=== PATIENT | female | born 2005 | race Caucasian/White ===

== ENCOUNTER 2025-01-31 08:52 | Outpatient (CLI) | payer MEDICAID ==
[2025-01-31] VITALS (21 sets, daily range): BP systolic 102–152; BP diastolic 58–113; PULSE 93–133
== END 2025-01-31 23:59 | disposition home or self-care (01) ==
LOC: CARD DIAG 08:52
PROVIDERS: ATTEND Nurse Practitioner Family
DX: R55 Syncope and collapse (principal); I95.1 Orthostatic hypotension
CPT/HCPCS: 93660

== ENCOUNTER 2025-04-29 15:39 | Emergency (ER) | payer MEDICAID ==
[~2025-04-29] VITALS: Ht 160 cm; Wt 150.4 kg
[2025-04-29 16:13] VITALS: TEMP 97.9
[2025-04-29 17:46] LABS: MEAN PLATELET VOLUME 8.6 FL (7.4-10.4); RED CELL DISTRIBUTION WIDTH 14.8 % (11.5-14.5)
[2025-04-29 17:55] LABS: CREATININE 0.93 MG/DL (0.40-0.90); TOTAL CARBON DIOXIDE 24.4 MMOL/L (24-32); eCRCL 78 ML/MIN; eGFR 75 ML/MIN
[2025-04-29] MEDS ORDERED: METR-159 PO (18:27)
--- NOTE | 2025-04-29 18:29 | Physician Documentation ---
History of Present Illness ~ Chief Complaint: Bloody Stools Stated Complaint: BLOOD IN STOOL Time Seen by MD: 17:16 Primary Medical Doctor: [facility] [place] Source: patient Mode of Arrival: EMS Exam Limitations: no limitations HPI 20-year-old female who is here due to blood on her stool along with "crampy" abdominal pain only when she has a BM x 5days. Symptoms are not worsening but she felt she should come to ER because not improving. She states her stool mushy. She reports about a year ago around this time she was diagnosed with colitis on a CT scan and treated with antibiotics. She never had a colonoscopy. She denies nausea or vomiting. She denies fever, chills Medication Reconciliation Allergies: Uncoded Allergies: MUSHROOMS (Allergy, Unknown, 03/20/25) PENICILLIN (Allergy, Unknown, 03/20/25) SHELLFISH (Allergy, Unknown, 03/20/25) Past Medical History Past Medical History: No Pertinent History Past Surgical History: no surgical history Alcohol Use: None Drug Use: none Review of Systems All Other Systems at this time: Reviewed and Negative Physical Exam Vital Signs: Temperature: 97.9, Source: Temporal, Heart Rate: 77, Respiratory Rate: 15, BP: 121/74, Pulse Oximetry: 98, Weight: 150.450 Oxygen Flow Rate: 0 Physical Exam GENERAL: Alert, no acute distress. HEENT: NCAT, EOMI, PERRL, normal oropharynx, moist oral mucosa. NECK: Supple, trachea midline. CARDIAC: Regular rate and rhythm, no murmurs, rubs, or gallops. Equal distal pulses. No lower extremity edema, cap refill less than 2 seconds. RESPIRATORY: Equal breath sounds, clear to auscultation bilaterally, no respiratory distress. GASTROINTESTINAL: Non distended, soft, NTTP, No guarding or rebound. MUSCULOSKELETAL: Normal range of motion, nontender, no swelling. Normal gait. NEUROLOGICAL: Awake, alert, and oriented x 3. SKIN: Warm/dry, no pallor, no rash. PSYCH: Alert and appropriate. Affect congruent with mood. Speech is clear. Good eye contact. Progress Results/Orders Results/Orders Completed Orders - SINAI HERNANDEZ Cbc/Diff (04/29/25 17:21) Bmp Er (04/29/25 17:21) Vital Signs 9/02/1504/29/25 04/29/25 16:13 17:48 17:55 Temp 97.9 Pulse 88 77 Resp 16 14 15 B/P (MAP) 127/74 121/74 (90) Pulse Ox 98 98 O2 Flow Rate 0 Laboratory Tests Test 04/29/25 17:33 White Blood Count 9.1 Red Blood Count 5.19 Hemoglobin 13.6 Hematocrit 40.8 Mean Corpuscular Volume 78.6 Mean Corpuscular Hemoglobin 26.2 L Mean Corpuscular Hemoglobin Concent 33.4 Red Cell Distribution Width 14.8 H Platelet Count 309 Mean Platelet Volume 8.6 Neutrophils (%) (Auto) 56.4 Lymphocytes (%) (Auto) 32.1 Monocytes (%) (Auto) 7.7 Eosinophils (%) (Auto) 3.4 Basophils (%) (Auto) 0.4 Neutrophils # (Auto) 5.2 Lymphocytes # (Auto) 2.9 Monocytes # (Auto) 0.7 Eosinophils # (Auto) 0.3 Basophils # (Auto) 0.0 CBC Comment Sodium Level 139 Potassium Level 3.8 Chloride Level 105 Carbon Dioxide Level 24.4 Anion Gap 10 Blood Urea Nitrogen 10 Creatinine 0.93 H Estimated GFR/1.73 m2 75 BUN/Creatinine Ratio 10.8 Glucose Level 129 H Calcium Level 8.9 Albumin 3.8 Chemistry Comments Medical Decision Making Diff Dx Pain:Considerations: Include: AAA, -Complete, - Incomplete, -Inevitable, -Missed, -Threatened, Abruptio placentae, Angina/DE, Aortic dissection, Appendicitis, Bowel obstruction, Cholangitis, Cholecystitis, Cholelithasis, Constipation, Diverticular disease, Dysmenorrhea, Ectopic , Esophageal rupture, Esophagitis, Gastritis/PUD, Gastroenteritis, GI hemorrhage, Hernia, Hepatitis, Inflammatory BD, Ischemic bowel, Mass, Ovarian cyst/torsion, Pancreatitis, PID, Porphyria, Trauma, intraabdominal, Urinary obstruction, Urinary tract infection, Urolithiasis Departure Time of Disposition: 18:27 Disposition: 01 HOME / SELF CARE / HOMELESS Impression: Primary Impression: Loose stools Additional Impressions: BRBPR (bright red blood per rectum) Abdominal pain Qualified Codes: R10.30 - Lower abdominal pain, unspecified Condition: Stable Discharge Instructions: Colitis Additional Instructions: WE DISCUSSED DOING A CT SCAN TO FURTHER EVALUATE BUT MUTUALLY AGREED THAT AT THIS TIME IT WOULD NOT CHANGE THE TREATMENT PLAN AND THEN IT WAS REASONABLE TO SEND YOU WITH FLAGYL SINCE FLAGYL CAN HAVE AN ANTI-INFLAMMATORY EFFECT ON THE COLON AND IT WILL COVER YOU FOR BACTERIAL ETIOLOGY. YOUR WHITE COUNT WAS NORMAL. YOUR RED BLOOD CELLS ARE NORMAL. RETURN TO ER IF WORSENING OF SYMPTOMS. F/U WITH PCP WITHIN THE NEXT 2WEEKS Referrals: NO PRIMARY CARE PROVIDER (PCP) Prescriptions Metronidazole* (Flagyl*) 500 Mg Tablet 1 TAB PO Q8H for 10 Days, #30 TAB Prov: SINAI HERNANDEZ 04/29/25 Education Educated: Patient Educated regarding: diagnosis, treatment, need for follow up Signature Scribe Signature: X Attestation: SINAI LEMUS Apr 29, 2025 18:29
[2025-04-29 18:41] VITALS: BP 128/79; PULSE 88; RESP 18; O2SAT 97
== END 2025-04-29 18:43 | disposition home or self-care (01) ==
LOC: ER 15:40
DX: K62.5 Hemorrhage of anus and rectum (principal)
CPT/HCPCS: 36415; 80048; 85025; 99283